=== PATIENT | female | born 1975 | race Two or more races ===

== ENCOUNTER 2020-02-28 18:05 | Inpatient (IN) | payer OTHER ==
[~2020-02-28] VITALS: Ht 167.6 cm; Wt 149.0 kg
[~2020-02-28 18:05] MED LIST: CEFTIN500 MG PO; HUMULIN R500 U/ML; Invanz IV; LANTUS100 U/ML; LISINOPRIL20 MG; REVATIO20 MG
[2020-02-28] MEDS ORDERED: ASPIR 8181 MG (18:38)
[2020-02-28] MEDS ORDERED: VITAMINA D (18:40)
[2020-02-28] MEDS ORDERED: VITAMINA C (18:42)
[2020-02-28] MEDS ORDERED: CALCIO (18:42)
== END 2020-03-08 15:35 | disposition home or self-care (01) | DRG 659 ==
LOC: ER 18:05 → SURH 02-29 17:04
PROVIDERS: Urology; ADMIT Internal Medicine; ATTEND Internal Medicine
PROC: BW21ZZZ Computerized Tomography (CT Scan) of Abdomen and Pelvis (ICD-10-PCS; 2020-02-29)
PROC: 8E0ZXY6 Isolation (ICD-10-PCS; 2020-02-29)
PROC: 0T9B70Z Drainage of Bladder with Drainage Device, Via Natural or Artificial Opening (ICD-10-PCS; 2020-02-29)
PROC: 0T778DZ Dilation of Left Ureter with Intraluminal Device, Via Natural or Artificial Opening Endoscopic (ICD-10-PCS; principal; 2020-03-01 10:15)
DX: N20.1 Calculus of ureter (principal); A41.89 Other specified sepsis; N39.0 Urinary tract infection, site not specified; N17.8 Other acute kidney failure; B96.4 Proteus (mirabilis) (morganii) as the cause of diseases classified elsewhere; B96.1 Klebsiella pneumoniae [K. pneumoniae] as the cause of diseases classified elsewhere; I27.20 Pulmonary hypertension, unspecified; I73.9 Peripheral vascular disease, unspecified; E03.8 Other specified hypothyroidism; E66.01 Morbid (severe) obesity due to excess calories; R31.0 Gross hematuria; G47.33 Obstructive sleep apnea (adult) (pediatric); E11.65 Type 2 diabetes mellitus with hyperglycemia; Z79.4 Long term (current) use of insulin

== ENCOUNTER 2023-08-18 12:25 | Emergency (ER) | payer OTHER ==
[~2023-08-18] VITALS: Ht 165.1 cm; Wt 136.1 kg
[~2023-08-18 12:25] MED LIST changes: +ASPIR 8181 MG; +CALCIO; +VITAMINA C; +VITAMINA D
[2023-08-18 14:54] LABS: HEMOGLOBIN 12.7 g/dL (12.0-15.00); MEAN CELL VOLUME 89.1 fL (80.00-100.00); MEAN CORPUSCULAR HEMOGLOBIN 29.8 pg (27.00-32.0); MEAN CORPUSCULAR HGB CONC 33.5 g/dl (32.0-36.0); PLATELET COUNT 158 K/uL (150-450); RED BLOOD COUNT 4.27 M/uL (4.00-6.00); RED CELL DISTRIBUTION WIDTH 14.2 % (11.5-14.5)
[2023-08-18 15:07] LABS: CALCIUM 8.5 mg/dL (8.5-10.1); CREATININE SERUM 2.16 mg/dL (0.55-1.02); GFR 24.13; INR 0.95; PARTIAL THROMBOPLASTIN TIME 29.8 SECONDS (22.0-34.0)
[2023-08-18 15:46] LABS: PH,URINE 5.5 (5.0-8.0); URINE APPEARANCE Cloudy; URINE BILIRRUBIN Negative (NEGATIVE); URINE BLOOD Large; URINE COLOR Dark Yellow; URINE LEUKOCYTE Large; URINE NITRATE Negative; URINE UROBILINOGEN 0.2 E.U./dl
[2023-08-18 15:50] LABS: URINE EPITHELIAL CELLS 14.8 uL (0.0-38.8)
[2023-08-18 16:21] LABS: URINE BACTERIA > 9821.5 uL (0.0-1933); URINE GLUCOSE 100 MG/DL (NEGATIVE); URINE PROTEIN 100 (NEGATIVE)
[2023-08-18] MEDS ORDERED: INTESTINEX680 M1 PO (17:12)
[2023-08-18] MEDS ORDERED: PEPCID AC20 MG PO (17:12)
[2023-08-19 18:36] LABS: ABG PH 7.396 (7.35-7.45)
[2023-08-19 18:37] LABS: ABG PO2 103.7 mmHg (80-100); ABG pCO2 16.4 mmHg (35-45); BASE EXCESS -11.9 mmol/l; BICARBONATE 9.8 mmol/l (23-25); SaO2 97.7 %; Tco2 10.3 mmol/l; allen test SATISFACTORY; o2 36 %; puncture site RADIAL RIGHT
== END 2023-08-18 17:20 | disposition home or self-care (01) ==
LOC: ER 12:25
PROVIDERS: General Practice
DX: R10.84 Generalized abdominal pain (principal); E11.9 Type 2 diabetes mellitus without complications
CPT/HCPCS: 36415; 74176; 96365; 96366; 99283; J1885; J3490; J7030

== ENCOUNTER 2023-08-19 09:50 | Inpatient (IN) | payer OTHER ==
[~2023-08-19] VITALS: Ht 165.1 cm; Wt 127.0 kg
[~2023-08-19 09:50] MED LIST changes: +INTESTINEX680 M1 PO; +PEPCID AC20 MG PO
[2023-08-19 11:01] LABS: HEMATOCRIT 37.8 % (36.0-45.00); HEMOGLOBIN 12.6 g/dL (12.0-15.00); MEAN CELL VOLUME 90.6 fL (80.00-100.00); MEAN CORPUSCULAR HEMOGLOBIN 30.3 pg (27.00-32.0); MEAN CORPUSCULAR HGB CONC 33.4 g/dl (32.0-36.0); PLATELET COUNT 113 K/uL (150-450); RED BLOOD COUNT 4.17 M/uL (4.00-6.00); RED CELL DISTRIBUTION WIDTH 14.3 % (11.5-14.5)
[2023-08-19 11:07] LABS: ABG PH 7.365 (7.35-7.45); ABG PO2 172.2 mmHg (80-100); ABG pCO2 17.8 mmHg (35-45); BASE EXCESS -12.5 mmol/l
[2023-08-19 11:08] LABS: Tco2 10.5 mmol/l; allen test NO SATISFACTORY; o2 100 %; puncture site RADIAL LEFT
[2023-08-19 11:18] LABS: PARTIAL THROMBOPLASTIN TIME 31.4 SECONDS (22.0-34.0); PROTHROMBIN TIME 10.5 SECONDS (9.0-11.5)
[2023-08-19 11:21] LABS: ALBUMIN 2.6 gm/dL (3.4-5.0); BILIRUBIN TOTAL 0.62 mg/dL (0.3-1.2); CALCIUM 8.3 mg/dL (8.5-10.1); CREATININE SERUM 2.83 mg/dL (0.55-1.02); GFR 17.67; GLOBULINA 3.7 G/DL (2.4-3.5); POTASSIUM 4.3 mEq/L (3.5-5.1); TOTAL PROTEIN 6.3 gm/dL (6.4-8.2)
[2023-08-19 18:38] LABS: URINE APPEARANCE Turbid; URINE BILIRRUBIN Moderate (NEGATIVE); URINE BLOOD Large; URINE COLOR Dark Yellow; URINE GLUCOSE Negative (NEGATIVE); URINE LEUKOCYTE Large; URINE NITRATE Negative
[2023-08-19 18:39] LABS: URINE RBC 26.3 uL (0.0-20.8)
[2023-08-19 18:41] LABS: PHOSPHOROUS 2.1 mg/dL (2.5-4.9)
[2023-08-19 18:45] LABS: MAGNESIUM 1.4 mg/dL (1.8-2.4)
[2023-08-19 19:19] LABS: URINE BACTERIA > 9821.2 uL (0.0-1933); URINE EPITHELIAL CELLS > 201.7 uL (0.0-38.8); URINE PROTEIN 100 (NEGATIVE); URINE WBC > 5548.3 uL (0.0-23.2)
[2023-08-19 19:20] LABS: URINE YEAST NEGATIVE /hpf
[2023-08-19 20:59] LABS: ob POSITIVE (NEGATIVE)
[2023-08-20 07:30] LABS: ABG PH 7.457 (7.35-7.45); ABG PO2 90.3 mmHg (80-100); ABG pCO2 24.9 mmHg (35-45); BASE EXCESS -4.7 mmol/l; BICARBONATE 17.2 mmol/l (23-25); SaO2 97.3 %; o2 32 %; puncture site BRADIAL LEFT
[2023-08-20 07:31] LABS: allen test SATISFACTORY
[2023-08-20 07:49] LABS: HEMATOCRIT 33.2 % (36.0-45.00); HEMOGLOBIN 10.9 g/dL (12.0-15.00); MEAN CELL VOLUME 89.7 fL (80.00-100.00); MEAN CORPUSCULAR HEMOGLOBIN 29.4 pg (27.00-32.0); MEAN CORPUSCULAR HGB CONC 32.8 g/dl (32.0-36.0); RED CELL DISTRIBUTION WIDTH 14.4 % (11.5-14.5)
[2023-08-20 08:17] LABS: BILIRUBIN TOTAL 0.5 mg/dL (0.3-1.2); CREATININE SERUM 2.53 mg/dL (0.55-1.02); GFR 20.11; GLOBULINA 3.5 G/DL (2.4-3.5); POTASSIUM 4.3 mEq/L (3.5-5.1); TOTAL PROTEIN 5.5 gm/dL (6.4-8.2)
[2023-08-20 08:46] LABS: PLATELET COUNT 93 K/uL (150-450)
[2023-08-20 11:34] LABS: TSH 1.8 uIU/mL (0.358-3.74)
[2023-08-21 06:24] LABS: HEMATOCRIT 29.5 % (36.0-45.00); HEMOGLOBIN 9.7 g/dL (12.0-15.00); MEAN CORPUSCULAR HGB CONC 32.9 g/dl (32.0-36.0); RED BLOOD COUNT 3.24 M/uL (4.00-6.00); RED CELL DISTRIBUTION WIDTH 14.5 % (11.5-14.5)
[2023-08-21 06:45] LABS: PLATELET COUNT 91 K/uL (150-450)
[2023-08-21 06:55] LABS: ALBUMIN 1.9 gm/dL (3.4-5.0); BILIRUBIN TOTAL 0.49 mg/dL (0.3-1.2); CALCIUM 6.8 mg/dL (8.5-10.1); CREATININE SERUM 1.74 mg/dL (0.55-1.02); GFR 30.97; GLOBULINA 3.3 G/DL (2.4-3.5); POTASSIUM 3.77 mEq/L (3.5-5.1); TOTAL PROTEIN 5.2 gm/dL (6.4-8.2)
[2023-08-21 07:08] LABS: MAGNESIUM 1.3 mg/dL (1.8-2.4); PHOSPHOROUS 1.9 mg/dL (2.5-4.9)
[2023-08-21 10:20] LABS: PLATELET ESTIMATE DECREASED (NORMAL)
[2023-08-21 11:20] LABS: CORTISOL 13.07 ug/dl
[2023-08-21 11:21] LABS: PROCALCITONIN 128.44 ng/ml (0.020-0.080)
[2023-08-22 06:15] LABS: URINE APPEARANCE Clear; URINE BILIRRUBIN Negative (NEGATIVE); URINE BLOOD Small; URINE COLOR Yellow; URINE GLUCOSE Negative (NEGATIVE); URINE LEUKOCYTE Trace; URINE NITRATE Negative; URINE PROTEIN Trace (NEGATIVE); URINE UROBILINOGEN 0.2 E.U./dl
[2023-08-22 06:19] LABS: URINE BACTERIA 37.7 uL (0.0-1933); URINE RBC 105.1 uL (0.0-20.8); URINE WBC 11.7 uL (0.0-23.2)
[2023-08-22 06:41] LABS: URINE EPITHELIAL CELLS 0.1 uL (0.0-38.8)
[2023-08-22 14:12] LABS: hav igm Negative (Negative); hcv Non Reactive (Non Reactive); hep b c Negative (Negative)
[2023-08-22 22:10] LABS: chla t Negative (Negative); neiss Negative (Negative)
[2023-08-23 09:04] LABS: ALBUMIN 1.9 gm/dL (3.4-5.0); BILIRUBIN TOTAL 0.48 mg/dL (0.3-1.2); CALCIUM 8.1 mg/dL (8.5-10.1); CREATININE SERUM 1.04 mg/dL (0.55-1.02); GFR 56.09; MAGNESIUM 1.7 mg/dL (1.8-2.4); POTASSIUM 4.47 mEq/L (3.5-5.1); TOTAL PROTEIN 5.9 gm/dL (6.4-8.2)
[2023-08-23 09:20] LABS: C-REACTIVE PROTEIN 2.28 MG/DL (0.00-0.29)
[2023-08-23 09:26] LABS: HEMATOCRIT 30.2 % (36.0-45.00); MEAN CELL VOLUME 90.8 fL (80.00-100.00); MEAN CORPUSCULAR HEMOGLOBIN 30.1 pg (27.00-32.0); MEAN CORPUSCULAR HGB CONC 33.1 g/dl (32.0-36.0); PLATELET COUNT 135 K/uL (150-450); RED BLOOD COUNT 3.33 M/uL (4.00-6.00); RED CELL DISTRIBUTION WIDTH 14.7 % (11.5-14.5)
[2023-08-26 12:27] LABS: ABG PH 7.426 (7.35-7.45); ABG PO2 115.2 mmHg (80-100); ABG pCO2 35.6 mmHg (35-45); BASE EXCESS -0.9 mmol/l; BICARBONATE 22.9 mmol/l (23-25); SaO2 98.6 %
[2023-08-26 12:29] LABS: allen test SATISFACTORY; o2 21 %; puncture site RADIAL RIGHT
[2023-08-26 12:51] LABS: HEMATOCRIT 31.8 % (36.0-45.00); HEMOGLOBIN 10.2 g/dL (12.0-15.00); MEAN CORPUSCULAR HEMOGLOBIN 29.4 pg (27.00-32.0); MEAN CORPUSCULAR HGB CONC 32.2 g/dl (32.0-36.0); PLATELET COUNT 266 K/uL (150-450); RED BLOOD COUNT 3.49 M/uL (4.00-6.00)
[2023-08-26 12:57] LABS: ALBUMIN 2.3 gm/dL (3.4-5.0); BILIRUBIN TOTAL 0.37 mg/dL (0.3-1.2); CALCIUM 8.6 mg/dL (8.5-10.1); CREATININE SERUM 0.97 mg/dL (0.55-1.02); GFR 60.79; POTASSIUM 4.81 mEq/L (3.5-5.1); TOTAL PROTEIN 6.3 gm/dL (6.4-8.2)
== END 2023-08-27 10:06 | disposition home or self-care (01) | DRG 871 ==
LOC: ER 09:50 → ICU-2 19:41 → ICU 19:41 → MEDJ 08-21 21:58 → ICU 08-21 22:01 → MEDJ 08-22 03:30
PROVIDERS: Emergency Medicine; General Practice; Internal Medicine Infectious Disease; ADMIT Internal Medicine; ATTEND Internal Medicine
PROC: B246ZZZ Ultrasonography of Right and Left Heart (ICD-10-PCS; principal; 2023-08-19)
PROC: 02HV33Z Insertion of Infusion Device into Superior Vena Cava, Percutaneous Approach (ICD-10-PCS; 2023-08-20)
PROC: BU4CZZZ Ultrasonography of Uterus and Ovaries (ICD-10-PCS; 2023-08-21)
PROC: 4A12X4Z Monitoring of Cardiac Electrical Activity, External Approach (ICD-10-PCS; 2023-08-22)
DX: A41.51 Sepsis due to Escherichia coli [E. coli] (principal); E11.10 Type 2 diabetes mellitus with ketoacidosis without coma; N39.0 Urinary tract infection, site not specified; N17.8 Other acute kidney failure; Z68.42 Body mass index [BMI] 45.0-49.9, adult; Z79.4 Long term (current) use of insulin; D64.9 Anemia, unspecified; E11.22 Type 2 diabetes mellitus with diabetic chronic kidney disease; I12.9 Hypertensive chronic kidney disease with stage 1 through stage 4 chronic kidney disease, or unspecified chronic kidney disease; G47.33 Obstructive sleep apnea (adult) (pediatric); F17.200 Nicotine dependence, unspecified, uncomplicated; N92.1 Excessive and frequent menstruation with irregular cycle; I27.21 Secondary pulmonary arterial hypertension; E66.01 Morbid (severe) obesity due to excess calories

== ENCOUNTER → 2024-05-28 07:11 | Outpatient (CLI) | payer OTHER | END | disposition home or self-care (01) | LOC: NUCLEAR 07:00 | PROVIDERS: ATTEND Internal Medicine | DX: I20.9 Angina pectoris, unspecified (principal) | CPT/HCPCS: 78452; 93017; A9500; J0153 ==